=== PATIENT | female | born 1955 | race African-American/Black ===

== ENCOUNTER → 2018-07-18 | Outpatient (CLI) | payer OTHER ==
[~2018-07-18] VITALS: Ht 149.9 cm; Wt 68.5 kg
[~2018-07-18] MED LIST: ACCUNEB SO1.25 MG/1 INH; AMLODIPINE BESY10 MG PO; CALCIUM 500 +1 EAC5 PO; CYMBALTA60 MG PO; DIABETA 5MG TABL5 MG PO; ESTRACE0.5 MG PO; FARXIGA10 MG PO; FLOVENT HFA 2220 MCG INH; FLOVENT HFA 4444 MCG INH; JANUVIA100 MG PO; K-DUR 20 MEQ T20 MEQ PO; KADIAN50 MG PO; LASIX 20 MG TAB20 MG PO; LIORESAL 10 MG10 MG PO; MIRALAX17 GM PO; NARCAN4 MG NASAL; OXYCONTIN15 MG PO; PERCOCET 10-321 EACH PO; PRINIVIL20 MG PO; PROTONIX40 M1 PO; TRAZODONE HCL100 MG PO; TRULICITY1.5 MG/0.5 SUBQ; VENTOLIN HFA 1818 GM INH; VICTOZA0.6 MG/0.1 SUBQ; ZANAFLEX4 MG PO; ZOCOR20 MG PO
--- NOTE | ~2018-07-18 | PATH ---
[facility] [address] [place] [address] PATHOLOGY RPT PROCEDURE Name: PRASAD CUMMINGS Room #: REG Matilde Carter.#: [id number] Admission: 07/18/18 Date of : 57 Discharge: Report #: [id number] Path Case #: [id number] [facility] Accession Number: [id number] . 01 Material submitted: . ESOPHAGEAL BIOPSIES R/O EOE . 01 Clinical history: . Pre-OP DX: Dysphagia Post-OP DX: Schatzki's ring . 02 Diagnosis: Squamous mucosa, esophagus, rule out eosinophilic esophagitis, endoscopic biopsy: - Mild active esophagitis showing features of reflux esophagitis. - No increase in intraepithelial eosinophils. - Negative for intestinal metaplasia or dysplasia. (IUV:ob tech; 07/19/2018) MBR/07/19/2018 . 02 Electronically signed: . Sabrina An MD, Pathologist NPI- [id number] . 01 Gross description: . Received in formalin labeled "Prasad Cummings, esophageal biopsies, rule out EOE," are multiple segments of he soft tissue measuring 0.9 x 0.3 x 0.1 cm in aggregate dimensions. The specimen is filtered and entirely submitted in cassette A1. (TSD; 07/18/2018) TOB/TOB . 02 Pathologist provided ICD-10: K21.0 . 02 CPT . 401533 Specimen Comment: A courtesy copy of this report has been sent to Specimen Comment: [phone], . Specimen Comment: Report sent to / DR FERNANDES Performed at: [address] [id number] MD Jerome Bey MD Phone: [phone] Performed at: [address] [id number] [address] [address] PATHOLOGY RPT PROCEDURE Name: PRASAD CUMMINGS Room #: REG MARIELA Larson#: [id number] Admission: 07/18/18 Date of : 57 Discharge: Report #: [id number] Path Case #: [id number] MD Sabrina An MD Phone: [phone]
== END | disposition home or self-care (01) ==
LOC: GI 07:39
DX: K22.2 Esophageal obstruction (principal); K21.0 Gastro-esophageal reflux disease with esophagitis; K22.8 Other specified diseases of esophagus; I10 Essential (primary) hypertension; E11.9 Type 2 diabetes mellitus without complications; J45.909 Unspecified asthma, uncomplicated; D64.9 Anemia, unspecified; E78.5 Hyperlipidemia, unspecified; M54.9 Dorsalgia, unspecified; G89.29 Other chronic pain; F32.9 Major depressive disorder, single episode, unspecified; F17.210 Nicotine dependence, cigarettes, uncomplicated; Z98.890 Other specified postprocedural states; Z88.2 Allergy status to sulfonamides; Z90.710 Acquired absence of both cervix and uterus; Z88.6 Allergy status to analgesic agent; Z79.899 Other long term (current) drug therapy
CPT/HCPCS: 62110; 62900

== ENCOUNTER → 2018-11-07 | Outpatient (CLI) | payer OTHER ==
[~2018-11-07] VITALS: Ht 147.3 cm; Wt 68.6 kg
== END | disposition home or self-care (01) ==
LOC: GI 09-05 10:31
DX: K22.2 Esophageal obstruction (principal); T18.2XXA Foreign body in stomach, initial encounter; I10 Essential (primary) hypertension; J45.909 Unspecified asthma, uncomplicated; E78.00 Pure hypercholesterolemia, unspecified; E11.9 Type 2 diabetes mellitus without complications; D64.9 Anemia, unspecified; F32.9 Major depressive disorder, single episode, unspecified; F41.9 Anxiety disorder, unspecified; M54.9 Dorsalgia, unspecified; G89.29 Other chronic pain; F17.210 Nicotine dependence, cigarettes, uncomplicated; Z90.710 Acquired absence of both cervix and uterus; Z98.890 Other specified postprocedural states; Z88.2 Allergy status to sulfonamides; Z88.8 Allergy status to other drugs, medicaments and biological substances; Z79.899 Other long term (current) drug therapy; X58.XXXA Exposure to other specified factors, initial encounter; Y93.89 Activity, other specified; Y92.89 Other specified places as the place of occurrence of the external cause; Y99.8 Other external cause status
CPT/HCPCS: 62110; 62900